=== PATIENT | male | born 1990 | race Caucasian/White ===

== ENCOUNTER 2016-07-26 09:18 | Emergency (ER) | payer OTHER ==
--- NOTE | 2016-07-26 11:47 | ED ORDER SUMMARY ---
..... Patient: DORI MERA OrderSheet [facility] VisitID: [id number] [address] [place] [address] 25y, M Registration Date/Time: 07/26/2016 ORDER SHEET Weight: 135.6 kg (stated) Allergies: No Known Drug Allergy GENERAL ORDERS: Culture, Strep Screen Urgent (10:47 07/26/2016 Radha BERNARDO) (Ack 10:49 Halle) (10:50 Halle) MEDICATION ORDERS: IV FLUIDS: ORDER SHEET NOTES: [Electronically signed by Tenisha Saeed R.N. (12:04 07/26/2016)] [Electronically signed by Jesse French MD (08:38 07/30/2016)] [Electronically locked/signed by Tenisha Saeed R.N. (12:04 07/26/2016)]
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
--- NOTE | 2016-07-26 11:47 | ED ORDER SUMMARY ---
..... Patient: DORI MERA OrderSheet [facility] VisitID: [id number] [address] [place] [address] 25y, M Registration Date/Time: 07/26/2016 ORDER SHEET Weight: 135.6 kg (stated) Allergies: No Known Drug Allergy GENERAL ORDERS: Culture, Strep Screen Urgent (10:47 07/26/2016 Radha BERNARDO) (Ack 10:49 Halle) (10:50 Halle) MEDICATION ORDERS: IV FLUIDS: ORDER SHEET NOTES: [Electronically signed by Tenisha Saeed R.N. (12:04 07/26/2016)] [Electronically signed by Jesse French MD (08:38 07/30/2016)] [Electronically locked/signed by Tenisha Saeed R.N. (12:04 07/26/2016)]
--- NOTE | 2016-07-30 08:39 | ED MED RECONCILIATION SUMMARY ---
Patient: DORI MERA Medication Reconciliation Report [facility] VisitID: [id number] [address] [place] [address] 25y, M Registration Date/Time: 07/26/2016 Weight: 135.6 kg Height/Length: 75 in. BMI: 37.4 ALLERGIES: No Known Drug Allergy The patient's Home Medications are listed below: CONTINUE TAKING THE FOLLOWING MEDICATIONS: Estradiol Oral Spironolactone Oral The source(s) of the original Home Medication information: Not obtained. The following Medications were given to the patient in the Emergency Department: None. The following Medications were prescribed to the patient: Acetaminophen (available over the counter): take according to label instructions. -- Jesse French MD Motrin (available over the counter): take according to label instructions. -- Jesse French MD
--- NOTE | 2016-07-30 08:39 | ED MAR SUMMARY ---
..... Medication Administration Record [facility] [address] [place], [place] [id number] Patient: DORI MERA Visit ID: [id number] 25y, M Weight: 135.6 kg Height/Length: 75 in BMI: 37.4 ALLERGIES: No Known Drug Allergy
--- NOTE | 2016-07-30 08:39 | ED DISCHARGE INSTRUCTIONS ---
Patient: DORI MERA General Instructions [facility] VisitID: [id number] [place] [address] 25y, M Registration Date/Time: 07/26/2016 Acute pharyngitis. No streptococcal pharyngitis, gonococcal pharyngitis or viral pharyngitis. Acute viral rhinitis and sinusitis. INSTRUCTIONS No strenuous activity. Rest. Do not work for two days until better. Drink plenty of fluids. Your Current Medications: CONTINUE TAKING THE FOLLOWING MEDICATIONS: Estradiol Oral. Spironolactone Oral. OTC Medications: Acetaminophen (available over the counter): take according to label instructions. Motrin (available over the counter): take according to label instructions. Follow-up: Follow up with your doctor in one week. Call for an appointment. Understanding of the discharge instructions verbalized by patient. ADDITIONAL INFORMATION Viral Respiratory Illness [Adult] You have an Upper Respiratory Illness (URI) caused by a virus. This illness is contagious during the first few days. It is spread through the air by coughing and sneezing or by direct contact (touching the sick person and then touching your own eyes, nose or mouth). Most viral illnesses go away within 7-10 days with rest and simple home remedies. Sometimes, the illness may last for several weeks. Antibiotics will not kill a virus and are generally not prescribed for this condition. Home Care: 1) If symptoms are severe, rest at home for the first 2-3 days. When you resume activity, don't let yourself get too tired. 2) Avoid being exposed to cigarette smoke (yours or others). 3) Tylenol (acetaminophen) or ibuprofen (Advil, Motrin) will help fever, muscle aching and headache. (Persons under 18 with fever should not take aspirin since this may cause liver damage.) 4) Your appetite may be poor, so a light diet is fine. Avoid dehydration by drinking 6-8 glasses of fluids per day (water, soft drinks, juices, tea, soup). Extra fluids will help loosen secretions in the nose and lungs. 5) Cldl-mey-ldlofvm cold medicines will not shorten the length of time youre sick, but they may be helpful for the following symptoms: cough (Robitussin DM); sore throat (Chloraseptic lozenges or spray); nasal and sinus congestion (Actifed, Sudafed, Chlortrimeton). Follow Up with your doctor or as advised if you dont improve over the next week. Get Prompt Medical Attention if any of the following occur: -- Cough with lots of colored sputum (mucus) or blood in your sputum -- Chest pain, shortness of breath, wheezing or have trouble breathing -- Severe headache; face, neck or ear pain -- Fever over 100.4 F (38.0 C) for more than three days -- You cant swallow due to throat pain You have been given the following additional information: Uri, Viral, No Abx (Adult) No strenuous activity. Rest. Do not work for two days until better. (Electronically signed by Jesse French MD 07/30/2016 8:38)
--- NOTE | 2016-07-30 08:39 | ED MED RECONCILIATION SUMMARY ---
Patient: DORI MERA Medication Reconciliation Report [facility] VisitID: [id number] [address] [place] [address] 25y, M Registration Date/Time: 07/26/2016 Weight: 135.6 kg Height/Length: 75 in. BMI: 37.4 ALLERGIES: No Known Drug Allergy The patient's Home Medications are listed below: CONTINUE TAKING THE FOLLOWING MEDICATIONS: Estradiol Oral Spironolactone Oral The source(s) of the original Home Medication information: Not obtained. The following Medications were given to the patient in the Emergency Department: None. The following Medications were prescribed to the patient: Acetaminophen (available over the counter): take according to label instructions. -- Jesse French MD Motrin (available over the counter): take according to label instructions. -- Jesse French MD
--- NOTE | 2016-07-30 08:39 | ED MAR SUMMARY ---
..... Medication Administration Record [facility] [address] [place], [place] [id number] Patient: DORI MERA Visit ID: [id number] 25y, M Weight: 135.6 kg Height/Length: 75 in BMI: 37.4 ALLERGIES: No Known Drug Allergy
== END 2016-07-26 12:02 | disposition home or self-care (01) ==
LOC: ED SRH 09:18
DX: J02.8 Acute pharyngitis due to other specified organisms (principal); J01.90 Acute sinusitis, unspecified; B97.89 Other viral agents as the cause of diseases classified elsewhere; Z87.891 Personal history of nicotine dependence
CPT/HCPCS: 90154; 90159